=== PATIENT | female | born 1955 | race Caucasian/White ===

== ENCOUNTER 2016-08-23 16:08 | Emergency (ER) | payer MEDICAID ==
[2016-08-23] MEDS ORDERED: ASPIRIN 81 MG TABLET, CHEWABLE PO ONE (16:32)
--- NOTE | 2016-08-23 16:32 | ER Document Report ---
ED Medical Screen (RME) - General Stated Complaint: POSSIBLE LOSS OF APPITITE Time seen by provider: 16:29 Mode of Arrival: Wheelchair Information source: Patient Notes: 61-year-old female presents to ED for chest tightness with shortness of breath since morning, indigestion for a few days, decreased appetite for 4-5 days, cold with sweating for 2 days. Denies any cardiac history. Patient has a history of COPD and wears oxygen. She states she is on 2-1/2 L of oxygen and her sat is 96%. I have greeted and performed a rapid initial assessment of this patient. A comprehensive ED assessment and evaluation of the patient, analysis of test results and completion of medical decision making process will be conducted by an additional ED providers. TRAVEL OUTSIDE OF THE [place] IN LAST 30 DAYS: No - Related Data Allergies/Adverse Reactions: No Known Allergies Allergy (Verified 08/23/16 16:28) Past Medical History - Past Medical History Cardiac Medical History: Reports: Hx Hypertension Pulmonary Medical History: Reports: Hx Asthma, Hx Bronchitis, Hx COPD, Hx Pneumonia, Hx Sleep Apnea Denies: Hx Tuberculosis Renal/ Medical History: Reports: Hx Kidney Stones GI Medical History: Reports: Hx Gastroesophageal Reflux Disease Musculoskeltal Medical History: Reports Hx Arthritis, Reports Hx Fibromyalgia Psychiatric Medical History: Reports: Hx Depression Past Surgical History: Reports: Hx Abdominal Surgery - HERNIA REPAIR, Hx Appendectomy, Hx Section, Hx Herniorrhaphy - 2009, Hx Hysterectomy, Hx Tonsillectomy. Denies: Hx Pacemaker - Immunizations Hx Diphtheria, Pertussis, Tetanus Vaccination: No
[2016-08-23 17:19] LABS: ABSOLUTE BASOPHILS # (AUTO) 0.1 10^3/uL (0.0-0.2); ABSOLUTE EOSINOPHILS # (AUTO) 0.1 10^3/uL (0.0-0.6); ABSOLUTE LYMPHOCYTES (AUTO) 2.9 10^3/uL (0.5-4.7); ABSOLUTE MONOCYTES (AUTO) 1.3 10^3/uL (0.1-1.4); ABSOLUTE NEUT (AUTO) 8.6 10^3/uL (1.7-8.2); BASOPHILS % (AUTO) 0.6 % (0-2); EOSINOPHILS % (AUTO) 0.8 % (0-6); HEMATOCRIT 47.6 % (36.0-47.0); HEMOGLOBIN 15.9 g/dL (12.0-15.5); HGB HCT DIFFERENCE 0.1; LYMPHOCYTES % (AUTO) 22.4 % (13-45); MEAN CORPUSCULAR HEMOGLOBIN 26.4 pg (27.0-33.4); MEAN CORPUSCULAR HGB CONC 33.4 g/dL (32.0-36.0); MEAN CORPUSCULAR VOLUME 79 fl (80-97); RED BLOOD COUNT 6.03 10^6/uL (3.72-5.28); RED CELL DISTRIBUTION WIDTH 14.2 % (11.5-14.0); SEGMENTED NEUTROPHILS % (AUTO) 66.2 % (42-78)
[2016-08-23 17:34] LABS: ALANINE AMINOTRANSFERASE 44 U/L (9-52); ALBUMIN 4.8 g/dL (3.5-5.0); ALKALINE PHOSPHATASE 79 U/L (38-126); ANION GAP 12 (5-19); ASPARTATE AMINO TRANSFERASE 33 U/L (14-36); BILIRUBIN,TOTAL 0.9 mg/dL (0.2-1.3); BLOOD UREA NITROGEN 16 mg/dL (7-20); CALCIUM 10.7 mg/dL (8.4-10.2); CARBON DIOXIDE 31 mmol/L (22-30); CHLORIDE 95 mmol/L (98-107); CREATINE KINASE 384 U/L (30-135); CREATININE RESULT 0.72 mg/dL (0.52-1.25); GLUCOSE 111 mg/dL (75-110); MAGNESIUM 1.9 mg/dL (1.6-2.3); POTASSIUM 4.1 mmol/L (3.6-5.0); SODIUM 138.3 mmol/L (137-145); TOTAL PROTEIN 8.4 g/dL (6.3-8.2)
[2016-08-23 17:46] LABS: CREATINE KINASE MB 3.46 ng/mL (<4.55)
[2016-08-23 18:00] LABS: TROPONIN I < 0.012 ng/mL
[2016-08-23] MEDS ORDERED: NORMAL SALINE 1000 ML 1,000 ML IV ONE (20:50)
[2016-08-23] MEDS ORDERED: ONDANSETRON HCL INJ/PF 4 MG/2 ML SDV IV ONE (20:51)
--- NOTE | 2016-08-23 22:57 | ER Document Report ---
ED General - General Chief Complaint: Chest Tightness Stated Complaint: POSSIBLE LOSS OF APPITITE Mode of Arrival: Wheelchair Notes: Patient is a 61-year-old female who presents with 3 days of intermittent nausea without vomiting except for the first day of her symptoms. Also notes that she has had loss of appetite. She admits to intermittent chest tightness a little states that is not happening for the last 2 days. Multiple sick family members at home with similar illness including the patient's daughter. Patient also notes intermittent cough. She has not had a fever, diarrhea and actually has not had a bowel movement for the past 3 days which she states is normal for her. She has not seen her primary care doctor regarding today's symptoms. Nothing improves or worsens her symptoms. Denies any shortness of breath, hemoptysis. TRAVEL OUTSIDE OF THE [place] IN LAST 30 DAYS: No - Related Data Allergies/Adverse Reactions: No Known Allergies Allergy (Verified 08/23/16 16:28) Past Medical History - General Information source: Patient - Social History Smoking Status: Current Every Day Smoker Chew tobacco use (# tins/day): Yes Frequency of alcohol use: None Drug Abuse: None Lives with: Family Family History: Reviewed & Not Pertinent Patient has suicidal ideation: No Patient has homicidal ideation: No - Past Medical History Cardiac Medical History: Reports: Hx Hypertension Pulmonary Medical History: Reports: Hx Asthma, Hx Bronchitis, Hx COPD, Hx Pneumonia, Hx Sleep Apnea Denies: Hx Tuberculosis Renal/ Medical History: Reports: Hx Kidney Stones. Denies: Hx Peritoneal Dialysis GI Medical History: Reports: Hx Gastroesophageal Reflux Disease Musculoskeltal Medical History: Reports Hx Arthritis, Reports Hx Fibromyalgia Psychiatric Medical History: Reports: Hx Depression Past Surgical History: Reports: Hx Abdominal Surgery - HERNIA REPAIR, Hx Appendectomy, Hx Section, Hx Herniorrhaphy - 2009, Hx Hysterectomy, Hx Tonsillectomy. Denies: Hx Pacemaker - Immunizations Hx Diphtheria, Pertussis, Tetanus Vaccination: No Hx Pneumococcal Vaccination: 03/11/10 Review of Systems - Review of Systems Notes: Constitutional: Negative for fever. HENT: Negative for sore throat. Eyes: Negative for visual changes. Cardiovascular: Positive for chest pain. Respiratory: Negative for shortness of breath. Gastrointestinal: Negative for abdominal pain, positive for vomiting Genitourinary: Negative for dysuria. Musculoskeletal: Negative for back pain. Skin: Negative for rash. Neurological: Negative for headaches, weakness or numbness. 10 point ROS negative except as marked above and in HPI. Physical Exam - Vital signs Vitals: Temp Pulse Resp BP Pulse Ox 98.5 F 73 18 138/60 H 96 08/23/16 16:18 08/23/16 16:18 08/23/16 16:18 08/23/16 16:18 08/23/16 16:18 Interpretation: Normal Notes: PHYSICAL EXAMINATION: GENERAL: Well-appearing, well-nourished and in no acute distress. HEAD: Atraumatic, normocephalic. EYES: Pupils equal round and reactive to light, extraocular movements intact, sclera anicteric, conjunctiva are normal. ENT: nares patent, oropharynx clear without exudates. Moist mucous membranes. NECK: Normal range of motion, supple without lymphadenopathy LUNGS: Breath sounds clear to auscultation bilaterally and equal. No wheezes rales or rhonchi. HEART: Regular rate and rhythm without murmurs ABDOMEN: Soft, nontender, normoactive bowel sounds. No guarding, no rebound. No masses appreciated. EXTREMITIES: Normal range of motion, no pitting or edema. No cyanosis. NEUROLOGICAL: No focal neurological deficits. Moves all extremities spontaneously and on command. PSYCH: Normal mood, normal affect. SKIN: Warm, Dry, normal turgor, no rashes or lesions noted. Course - Re-evaluation Re-evalutation: 08/23/16 22:57 Patient presents with decreased appetite, one episode of vomiting 3 days ago but no additional vomiting since that time, as well as intermittent chest tightness. Patient is overall well-appearing on exam, vitals within normal limits on her home 2 L by nasal cannula. She has no focal abdominal tenderness on examination. She denies any chest pain today and states she has not had any chest pain for the past several days. EKG without ischemic changes and a troponin is negative. I do not suspect ACS based on patient's clinical history I do not believe serial troponin testing is indicated given the last time the patient had chest pain was approximately 2 days ago. Likewise, I do not suspect an acute pulmonary embolus given the absence of pleuritic pain, tachcardia or tachypnea. Regarding patient's nausea and one episode of vomiting as well as loss of appetite, the exact etiology of this is somewhat unclear at this time. Right upper quadrant ultrasound does not demonstrate any evidence of acute cholecystitis or symptomatic cholelithiasis. Labs do not suggest an acute hepatitis or pancreatitis. A KUB does not demonstrate any evidence of a bowel obstruction. It is possible the patient could have a viral illness given that multiple members of the family including the patient's daughter who I saw earlier for very similar symptoms. Patient has tolerated oral intake here without difficulty.At this time will discharge with return precautions and follow-up recommendations. Verbal discharge instructions given a the bedside and opportunity for questions given. Medication warnings reviewed. Patient is in agreement with this plan and has verbalized understanding of return precautions and the need for primary care follow-up in the next 24-72 hours. - Vital Signs Vital signs: Temp Pulse Resp BP Pulse Ox 98.5 F 65 20 117/54 L 92 08/23/16 16:18 08/23/16 23:56 08/23/16 23:56 08/23/16 23:56 08/23/16 23:56 - Laboratory Result Diagrams: 08/23/16 17:00 08/23/16 17:00 Laboratory results interpreted by me: 08/23/16 08/23/16 17:00 17:00 WBC 13.0 H RBC 6.03 H Hgb 15.9 H Hct 47.6 H MCV 79 L MCH 26.4 L RDW 14.2 H Absolute Neutrophils 8.6 H Chloride 95 L Carbon Dioxide 31 H Glucose 111 H Calcium 10.7 H Creatine Kinase 384 H Total Protein 8.4 H - Diagnostic Test Radiology reviewed: Reports reviewed - EKG Interpretation by Me Additional EKG results interpreted by me: 08/23/16 23:01 Normal sinus rhythm. Rate 68. No ST elevations or depressions. QTC is 464. Discharge - Discharge Clinical Impression: Loss of appetite, Nausea Condition: Good Disposition: HOME, SELF-CARE Additional Instructions: You have been seen in the Emergency Department (ED) today for nausea and loss of appetite. Your work up today has not shown a clear cause for your symptoms. You have been prescribed Zofran; please use as prescribed as needed for your nausea. Follow up with your doctor tomorrow regarding today's emergent visit and your symptoms of nausea. Return to the Emergency Department (ED) if you develop abdominal pain, bloody vomiting, bloody diarrhea, if you are unable to tolerate fluids due to vomiting , or if you develop other symptoms that concern you. Referrals: JAMES AMAYA MD [Primary Care Provider] - Follow up tomorrow
[2016-08-23] MEDS ORDERED: ONDANSETRON ODT 4 MG TAB (6 TAB/DSPK) PO PRN (23:02)
[2016-08-23 23:58] VITALS: BP 117/54
== END 2016-08-23 23:28 | disposition home or self-care (01) ==
LOC: ER 16:08
DX: R63.0 Anorexia (principal); R11.0 Nausea; R07.89 Other chest pain; R05 Cough; F17.200 Nicotine dependence, unspecified, uncomplicated; I10 Essential (primary) hypertension; J45.909 Unspecified asthma, uncomplicated; J44.9 Chronic obstructive pulmonary disease, unspecified; Z87.01 Personal history of pneumonia (recurrent); Z87.442 Personal history of urinary calculi; Z87.19 Personal history of other diseases of the digestive system; Z90.49 Acquired absence of other specified parts of digestive tract; Z90.710 Acquired absence of both cervix and uterus
CPT/HCPCS: 99284; 96361; 96374; 36415; 82553; 82550; 83735; 85025; 80053; 84484; 71020; 74000; 76705; J2405; J7030

== ENCOUNTER → 2016-10-20 | Outpatient (CLI) | payer MEDICAID | LOC: SP 11:30 | PROVIDERS: ATTEND Internal Medicine | DX: R22.42 Localized swelling, mass and lump, left lower limb (principal) | CPT/HCPCS: 93971 ==

== ENCOUNTER → 2017-02-28 | Outpatient (CLI) | payer MEDICAID ==
--- NOTE | 2017-02-28 11:36 | RADIOLOGY REPORT (SQ) ---
EXAM DESCRIPTION: CT LUNG CANCER SCREENING COMPLETED DATE/TIME: 02/28/2017 9:29 am REASON FOR STUDY: ENCOUNTER FOR SCREENING FOR MALIGNANT NEOPLASM OF RESPIRATORY (Z12.2) J44.9 CHRON IC OBSTRUCTIVE PULMONARY DISEASE, UNSPECIFIED Z12.31 ENCNTR SCREEN MAMMOGRAM FOR MALIGNANT NEOPLASM OF BETSY Has the patient had a Chest CT scan within the past year? No Was the patient offered tobacco cessation counseling? Yes Was the patient engaged in shared decision making for this test? Yes Does the patient have signs or symptoms of Lung Cancer? No Is the patient a smoker? Yes How many packs per year? 365 How many years since quitting smoking? Not applicable Patients age: 62 COMPARISON: Two-view chest 04/10/[address] 08/24/2014, 12/04/2014, 05/23/2016 TECHNIQUE: Low Dose CT scan performed of the chest without intravenous contrast for purposes of scre ening for lung cancer. Images reviewed with lung, soft tissue and bone windows. Reconstructed coron al and sagittal MPR images reviewed. All images stored on PACS. All CT scanners at this facility use dose modulation, iterative reconstruction, and/or weight based d osing when appropriate to reduce radiation dose to as low as reasonably achievable (ALARA). [facility]: Dose Right [facility]: CareDose [facility]: Dose Right [facility]: Teradose 4D [facility]: [employer] RADIATION DOSE: Up-to-date CT equipment and radiation dose reduction techniques were employed. CTDIv ol: 2.1 mGy. DLP: 76 mGy-cm. mGy. . LIMITATIONS: No technical limitations. FINDINGS: LUNG NODULES: In the right middle lobe, a 6.5 mm smooth round subpleural nodule is presen t unchanged from CT exams dating back to 08/24/2014, benign. Along the periphery of the right middle lobe, less than 4 mm smooth round subpleural noncalcified gra nulomas are present unchanged from CT 08/24/2014, benign. REMAINING LUNGS AND PLEURA: No pleural effusions or calcifications. No pneumothorax. Bandlike a telectasis in the right middle lobe and lingula, unchanged. HILAR AND MEDIASTINAL STRUCTURES: No identified masses. No abnormal nodes. HEART AND VASCULAR STRUCTURES: No aortic aneurysm. No pericardial effusion. No cardiac devices. CORONARY ARTERY CALCIFICATIONS: No significant calcifications. UPPER ABDOMEN, THYROID, BONES, OTHER SOFT TISSUES: No significant findings. IMPRESSION: BENIGN FINDINGS IN THE LUNGS. NO OTHER CLINICALLY SIGNIFICANT/POTENTIALLY CLINICALLY SIGNIFICANT FINDINGS LUNGRADS: LUNGRADS: 2 BENIGN APPEARANCE OR BEHAVIOR. NODULES WITH A VERY LOW LIKELIHOOD OF BECOMING A CLINICALLY ACTIVE CANCER DUE TO SIZE OR LACK OF GROWTH. MODIFIER: NONE. RECOMMENDATION: Continue annual screening with LDCT in 12 months. COMMENT: CRITERIA: Solid nodule(s): < 6 mm; new < 4 mm. Part solid nodule(s): < 6 mm total diameter on baseline screening. Non solid nodule(s) (GGN): < 20 mm OR ? 20 and unchanged or slowly growing. Category 3 or 4 modules unchanged for ? 3 months. TECHNICAL DOCUMENTATION: JOB ID: [id number] Quality ID # 436: Final reports with documentation of one or more dose reduction techniques (e.g., Au tomated exposure control, adjustment of the mA and/or kV according to patient size, use of iterative reconstruction technique) 2011 [employer]
--- NOTE | 2017-02-28 16:09 | WOMENS IMAGING REPORT ---
EXAM DESCRIPTION: BILAT SCREENING MAMMO W/CAD COMPLETED DATE/TIME: 02/28/2017 9:47 am REASON FOR STUDY: ROUTINE SCREENING; Z12.31 J44.9 CHRONIC OBSTRUCTIVE PULMONARY DISEASE, UNSPECIFIE D Z12.31 ENCNTR SCREEN MAMMOGRAM FOR MALIGNANT NEOPLASM OF BETSY COMPARISON: Multiple since 2008 TECHNIQUE: Standard craniocaudal and mediolateral oblique views of each breast recorded using digita l acquisition. LIMITATIONS: None. FINDINGS: No masses, calcifications or architectural distortion. No areas of suspicion. Read with the assistance of CAD. .[facility] - R2 Cenova Version 1.3 .[facility] - R2 Cenova Version 1.3 .[facility] - R2 Cen[employer] Version 2.4 .[facility] - R2 Cenova Version 2.4 .[facility] - R2 Clinical Staff Educator Version 9.2 IMPRESSION: NORMAL MAMMOGRAM. BIRADS 1. BREAST DENSITY: a. The breasts are almost entirely fatty. BIRAD: 1 NEGATIVE RECOMMENDATION: ROUTINE SCREENING Please consider bilateral screening tomosynthesis in February 2018 COMMENT: The patient has been notified of the results by letter per SA requirements. Additional no tification policies are in place for contacting patient with suspicious or incomplete findings. Quality ID #[id number]: The [employer] recommends an annual screening mammogram for women aged 40 years or over. This facility utilizes a reminder system to ensure that all patients receive reminder letters, and/or direct phone calls for appointments. This includes reminders for routine scr eening mammograms, diagnostic mammograms, or other Breast Imaging Interventions when appropriate. Th is patient will be placed in the appropriate reminder system. The [employer] (ACR) has developed recommendations for screening MRI of the breast s in certain patient populations, to be used in conjunction with mammography. Breast MRI surveillanc e may be appropriate for women with more than 20% lifetime risk of developing breast cancer as deter mined by genetic testing, significant family history of the disease, or history of mantle radiation f or Hodgkins Disease. ACR Practice Guidelines 2008. TECHNICAL DOCUMENTATION: FINDING NUMBER: (1) ASSESSMENT: (1) JOB ID: [id number] [employer]- All Rights Reserved
== END ==
LOC: RAD 08:51
PROVIDERS: ATTEND Internal Medicine
DX: Z12.31 Encounter for screening mammogram for malignant neoplasm of breast (principal); J44.9 Chronic obstructive pulmonary disease, unspecified; Z12.2 Encounter for screening for malignant neoplasm of respiratory organs
CPT/HCPCS: G0297; G0202; 77067

== ENCOUNTER → 2017-07-24 | Outpatient (CLI) | payer MEDICAID ==
--- NOTE | 2017-07-24 13:31 | RADIOLOGY REPORT (SQ) ---
EXAM DESCRIPTION: CHEST PA/LATERAL COMPLETED DATE/TIME: 07/24/2017 11:18 am REASON FOR STUDY: CHRONIC OBSTRUCTIVE PULMONARY DISEASE, UNSPECIFIED COMPARISON: 08/23/2016 NUMBER OF VIEWS: Two view. TECHNIQUE: Frontal and lateral radiographic views of the chest acquired. LIMITATIONS: None. FINDINGS: LUNGS AND PLEURA: Stable mild diffuse interstitial change. Chronic markings left lower l chioma zone. MEDIASTINUM AND HILAR STRUCTURES: No masses or contour abnormalities. HEART AND VASCULATURE: Heart normal size. No evidence for failure. BONY STRUCTURES: No acute findings. HARDWARE: None. OTHER: No other significant finding. IMPRESSION: Mild chronic diffuse interstitial change in chronic markings left base. No acute findin gs. TECHNICAL DOCUMENTATION: JOB ID: [id number] [employer]- All Rights Reserved
== END ==
LOC: OD 11:09
PROVIDERS: ATTEND Internal Medicine
DX: J44.9 Chronic obstructive pulmonary disease, unspecified (principal)
CPT/HCPCS: 71046

== ENCOUNTER 2019-05-14 18:18 | Inpatient (IN) | payer MEDICARE, MEDICAID ==
[2019-05-14] MEDS ORDERED: ONDANSETRON 4 MG TAB.RAPDIS PO ONE (19:09)
--- NOTE | 2019-05-14 19:09 | ER Document Report ---
ED Medical Screen (RME) - General Chief Complaint: Flank Pain Stated Complaint: LEFT FLANK PAIN Time Seen by Provider: 05/14/19 19:03 Primary Care Provider: JAMES AMAYA MD [Primary Care Provider] - Follow up as needed Mode of Arrival: Wheelchair Information source: Patient Notes: This 64-year-old female with history of kidney stones COPD IBS and chronic back and knee pain presents emergency department with left-sided flank pain started yesterday. Reports nausea. Reports she wears a fentanyl patch and that is not touching the pain. Denies fever. Reports decreased appetite I have greeted and performed a rapid initial assessment of this patient. A comprehensive ED assessment and evaluation of the patient, analysis of test results and completion of the medical decision making process will be conducted by additional ED providers. Dictation of this chart was performed using voice recognition software; therefore, there may be some unintended grammatical errors. TRAVEL OUTSIDE OF THE [place] IN LAST 30 DAYS: No - Related Data Allergies/Adverse Reactions: No Known Allergies Allergy (Verified 05/14/19 19:01) Home Medications: blood pressure meds. linzess. Past Medical History - Social History Chew tobacco use (# tins/day): No Frequency of alcohol use: None Drug Abuse: None - Past Medical History Cardiac Medical History: Reports: Hx Hypertension Pulmonary Medical History: Reports: Hx Asthma, Hx Bronchitis, Hx COPD, Hx Pneumonia, Hx Sleep Apnea Denies: Hx Tuberculosis Renal/ Medical History: Reports: Hx Kidney Stones. Denies: Hx Peritoneal Dialysis GI Medical History: Reports: Hx Gastroesophageal Reflux Disease Musculoskeltal Medical History: Reports Hx Arthritis, Reports Hx Fibromyalgia Psychiatric Medical History: Reports: Hx Depression Past Surgical History: Reports: Hx Abdominal Surgery - HERNIA REPAIR, Hx Appendectomy, Hx Section, Hx Herniorrhaphy - 2009, Hx Hysterectomy, Hx Tonsillectomy. Denies: Hx Pacemaker - Immunizations Hx Diphtheria, Pertussis, Tetanus Vaccination: No Physical Exam - Vital signs Vitals: Temp Pulse Resp BP Pulse Ox 98.5 F 95 20 120/67 92 05/14/19 18:45 05/14/19 18:45 05/14/19 18:45 05/14/19 18:45 05/14/19 18:45 Course - Vital Signs Vital signs: Temp Pulse Resp BP Pulse Ox 98.5 F 95 20 120/67 92 12/04/19 19:01 05/14/19 19:01 05/14/19 19:01 05/14/19 19:01 05/14/19 19:01 Doctor's Discharge - Discharge Referrals: JAMES AMAYA MD [Primary Care Provider] - Follow up as needed
[2019-05-14 19:44] LABS: HEMATOCRIT 43.8 % (36.0-47.0); HEMOGLOBIN 14.5 g/dL (12.0-15.5); MEAN CORPUSCULAR HEMOGLOBIN 25.7 pg (27.0-33.4); MEAN CORPUSCULAR HGB CONC 33.1 g/dL (32.0-36.0); MEAN CORPUSCULAR VOLUME 78 fl (80-97); PLATELET COUNT 376 10^3/uL (150-450); RED BLOOD COUNT 5.64 10^6/uL (3.72-5.28); RED CELL DISTRIBUTION WIDTH 15.7 % (11.5-14.0); WHITE BLOOD COUNT 23.5 10^3/uL (4.0-10.5)
[2019-05-14 19:53] LABS: ALBUMIN 4.2 g/dL (3.5-5.0); ALKALINE PHOSPHATASE 70 U/L (38-126); ANION GAP 9 (5-19); ASPARTATE AMINO TRANSFERASE 13 U/L (14-36); BILIRUBIN,DIRECT 0.1 mg/dL (0.0-0.4); BILIRUBIN,TOTAL 0.7 mg/dL (0.2-1.3); BLOOD UREA NITROGEN 11 mg/dL (7-20); CALCIUM 9.6 mg/dL (8.4-10.2); CARBON DIOXIDE 29 mmol/L (22-30); CHLORIDE 99 mmol/L (98-107); GLUCOSE 115 mg/dL (75-110); POTASSIUM 4.1 mmol/L (3.6-5.0); TOTAL PROTEIN 7.6 g/dL (6.3-8.2)
[2019-05-14 20:07] LABS: ABSOLUTE LYMPHOCYTES# (MANUAL) 5.9 10^3/uL (0.5-4.7); ABSOLUTE MONOCYTES # (MANUAL) 1.9 10^3/uL (0.1-1.4); BASOPHILS % (MANUAL) 0 % (0-2); EOSINOPHILS % (MANUAL) 1 % (0-6); LYMPHOCYTES % (MANUAL) 25 % (13-45); MONOCYTES % (MANUAL) 8 % (3-13); SEGMENTED NEUTROPHILS % (MAN) 66 % (42-78); TOTAL CELLS COUNTED 100
[2019-05-14 20:08] LABS: ANISOCYTOSIS SLIGHT; PLATELET COMMENT ADEQUATE
[2019-05-14 23:52] LABS: APPEARANCE,URINE SLIGHTLY-CLOUDY; BILIRUBIN,URINE NEGATIVE (NEGATIVE); COLOR,URINE AMBER; GLUCOSE, URINE NEGATIVE (NEGATIVE); KETONES,URINE NEGATIVE (NEGATIVE); LEUKOCYTE ESTERASE,URINE TRACE (NEGATIVE); NITRITE,URINE NEGATIVE (NEGATIVE); PROTEIN,URINE 30 mg/dL (NEGATIVE); URINE SPECIFIC GRAVITY 1.035
--- NOTE | 2019-05-15 00:20 | RADIOLOGY REPORT (SQ) ---
EXAM DESCRIPTION: CT ABDOMEN PELVIS WITH IV CONTRAST COMPLETED DATE/TME: 05/14/2019 19:07 CLINICAL HISTORY: 64 years, Female, LEFT flank LLQ pain COMPARISON: None. TECHNIQUE: Contrast enhanced CT of the abdomen/pelvis was performed. Coronal and sagittal reformations were created. Images were obtained of the uneventful administration of 100 mL of Omnipaque 350 intravenous contrast. Images stored on PACS. All CT scanners at this facility use dose modulation, iterative reconstruction, and/or weight based dosing when appropriate to reduce radiation dose to as low as reasonably achievable (ALARA). [facility]: Dose Right [facility]: CareDose [facility]: Dose Right [facility]: Teradose 4D [facility]: [employer] LIMITATIONS: None. FINDINGS: Limited evaluation of the lower chest reveals bands of opacity about the basilar segment of both lower lobes, indicating areas of atelectasis and/or scar. Liver, spleen, pancreas, gallbladder, and both adrenal glands appear normal. A few subcentimeter low-density lesions are noted about both kidneys which are too small to accurately characterize. Both kidneys otherwise enhance symmetrically. There is no hydronephrosis or hydroureter. The urinary bladder is partially collapsed, thus its evaluation is limited. The small and large bowel are normal in caliber without areas of focal wall thickening. No evidence of bowel obstruction. Moderate calcified/noncalcified atherosclerotic plaque is noted throughout the abdominal aorta extending into the proximal iliac vessels. In addition, the abdominal aorta appears enlarged just below the diaphragmatic hiatus measuring 2.8 x 2.6 cm in size. In addition, there is mild thickening of the aortic wall which appears new from the previous examination dated 06/17/2014. This is visualized on image 40 of series 3. Minimal inflammatory stranding is noted about the retroperitoneum at this location. No superimposed penetrating atherosclerotic ulcer is identified. No suspicious lymphadenopathy is appreciated though there are several small/nonenlarged retroperitoneal lymph nodes. Postsurgical changes of ventral hernia repair are noted about the right lower quadrant. Bone windows show no destructive osseous lesions. IMPRESSION: Mild focal thickening of the infrarenal aortic wall with associated adjacent inflammatory stranding. Aortitis is a possibility, to include infectious or inflammatory etiologies. 2.8 cm mild suprarenal aortic dilatation, not meeting criteria for aneurysm. No follow-up imaging is recommended. Reference: J Am [employer]to Radiol 2013;10:789-794. TECHNICAL DOCUMENTATION: Quality ID # 436: Final reports with documentation of one or more dose reduction techniques (e.g., Automated exposure control, adjustment of the mA and/or kV according to patient size, use of iterative reconstruction technique) copyright 2011 [employer]- All Rights Reserved
[2019-05-15] MEDS ORDERED: KETOROLAC TROMETHAMINE INJ/PF 30 MG/1 ML SDV IV ONE ×2 (00:21→05:45)
--- NOTE | 2019-05-15 00:50 | ER Document Report ---
ED GI/ - General Chief Complaint: Flank Pain Stated Complaint: LEFT FLANK PAIN Time Seen by Provider: 05/14/19 19:03 Mode of Arrival: Wheelchair Notes: Patient is a 64-year-old female that comes to the emergency department for chief complaint of mid to lower abdominal pain and flank pain worse on the left that started yesterday. She reports some nausea but denies vomiting. She denies chest pain, dizziness, fever. She states that she wears fentanyl patch for chronic lower back pain and this is not helping. She denies any other symptoms. Past medical history includes COPD, hypertension, restless legs, irritable bowel, complete as directed me, appendectomy, hernia repair. TRAVEL OUTSIDE OF THE [place] IN LAST 30 DAYS: No - Related Data Allergies/Adverse Reactions: No Known Allergies Allergy (Verified 05/14/19 19:01) Home Medications: blood pressure meds. linzess. Past Medical History - General Information source: Patient - Social History Smoking Status: Current Every Day Smoker Chew tobacco use (# tins/day): No Frequency of alcohol use: None Drug Abuse: None Lives with: Family Family History: Reviewed & Not Pertinent Patient has suicidal ideation: No Patient has homicidal ideation: No - Past Medical History Cardiac Medical History: Reports: Hx Hypertension Pulmonary Medical History: Reports: Hx Asthma, Hx Bronchitis, Hx COPD, Hx Pneumonia, Hx Sleep Apnea Denies: Hx Tuberculosis Renal/ Medical History: Reports: Hx Kidney Stones. Denies: Hx Peritoneal Dialysis GI Medical History: Reports: Hx Gastroesophageal Reflux Disease Musculoskeletal Medical History: Reports Hx Arthritis, Reports Hx Fibromyalgia Psychiatric Medical History: Reports: Hx Depression Past Surgical History: Reports: Hx Abdominal Surgery - HERNIA REPAIR, Hx Appendectomy, Hx Section, Hx Herniorrhaphy - 2008, Hx Hysterectomy, Hx Tonsillectomy. Denies: Hx Pacemaker - Immunizations Hx Diphtheria, Pertussis, Tetanus Vaccination: No Hx Pneumococcal Vaccination: 03/11/10 Review of Systems - Review of Systems Constitutional: No symptoms reported EENT: No symptoms reported Cardiovascular: No symptoms reported Respiratory: No symptoms reported Gastrointestinal: See HPI Genitourinary: See HPI Female Genitourinary: No symptoms reported Musculoskeletal: No symptoms reported Skin: No symptoms reported Hematologic/Lymphatic: No symptoms reported Neurological/Psychological: No symptoms reported Physical Exam - Vital signs Vitals: Temp Pulse Resp BP Pulse Ox 98.5 F 95 20 120/67 92 12/04/19 18:45 05/14/19 18:45 05/14/19 18:45 05/14/19 18:45 05/14/19 18:45 - Notes Notes: GENERAL: Alert, interacts well. No acute distress. HEAD: Normocephalic, atraumatic. EYES: Pupils equal, round, and reactive to light. Extraocular movements intact. ENT: Oral mucosa moist, tongue midline. Oropharynx unremarkable. Airway patent. NECK: Full range of motion. Supple. Trachea midline. LUNGS: Clear to auscultation bilaterally, no wheezes, rales, or rhonchi. No respiratory distress. HEART: Regular rate and rhythm. No murmur ABDOMEN: Tender in the mid abdomen, worse on the left and also slightly in the left lower abdomen. No guarding or rigidity, no peritoneal signs, normal bowel sounds. GENITOURINARY: Deferred EXTREMITIES: Moves all 4 extremities spontaneously. No edema, normal radial and dorsalis pedis pulses bilaterally. No cyanosis. BACK: no cervical, thoracic, lumbar midline tenderness. No saddle anesthesia, normal distal neurovascular exam. Moves all extremities in full range of motion. NEUROLOGICAL: Alert and oriented x3. Normal speech. Cranial nerves II through XII grossly intact. PSYCH: Normal affect, normal mood. SKIN: Warm, dry, normal turgor. No rashes or lesions noted. Course - Re-evaluation Re-evalutation: Patient does have generalized tenderness of the abdomen, worse on the left, this is in the mid abdomen. However I do not appreciate any guarding, she is talkative and well-appearing, her vital signs are unremarkable. CBC shows leukocytosis at approximately 24,000. No bandemia. Chemistry nonspecific. CT of the abdomen and pelvis with IV contrast performed and shows aortitis of possible infectious or inflammatory cause. I discussed with Dr. Betancourt. Lactic acid was added and not elevated. She recommends I discussed with hospitalist and also with vascular specialty. I spoke with Dr. Otoole, patient's provider and hospitalist, he recommends broad-spectrum antibiotics with Zosyn and admission to the IMCU. He accepts patient for admission. I did also call and speak with Dr. Breanna Gandhi, he does not have additional rec ommendations at this time but he does state that he will see the patient in the morning and he asks that a consult be placed, I did place this. I discussed this at length with patient. Patient states understanding and agreement with plan. - Vital Signs Vital signs: Temp Pulse Resp BP Pulse Ox 98.7 F 83 16 104/87 H 94 05/15/19 06:00 05/15/19 02:19 05/15/19 07:01 05/15/19 07:01 05/15/19 07:01 - Laboratory Result Diagrams: 05/14/19 19:27 05/14/19 19:27 Laboratory results interpreted by me: 05/14/19 05/14/19 05/14/19 19:27 19:27 23:40 WBC 23.5 H RBC 5.64 H MCV 78 L MCH 25.7 L RDW 15.7 H Abs Neuts (Manual) 15.5 H Abs Lymphs (Manual) 5.9 H Abs Monocytes (Manual) 1.9 H Glucose 115 H Lactic Acid (Sepsis) AST 13 L Urine Protein 30 H Urine Urobilinogen 2.0 H Ur Leukocyte Esterase TRACE H 05/15/19 01:00 WBC RBC MCV MCH RDW Abs Neuts (Manual) Abs Lymphs (Manual) Abs Monocytes (Manual) Glucose Lactic Acid (Sepsis) 0.5 L AST Urine Protein Urine Urobilinogen Ur Leukocyte Esterase Discharge - Discharge Clinical Impression: Flank pain, Aortitis Abdominal pain Qualifiers: Abdominal location: generalized Qualified Code(s): R10.84 - Generalized abdominal pain Condition: Stable Disposition: ADMITTED INPATIENT Admitting Provider: [facility] Admitted: [facility]
[2019-05-15] MEDS ORDERED: NORMAL SALINE 1000 ML 1,000 ML IV ONE (00:51)
[2019-05-15] MEDS ORDERED: PIPERACILLIN/TAZOBACTAM 3.375 GM VIAL IV ONE (00:54)
[2019-05-15] MEDS ORDERED: NORMAL SALINE 500 ML IV ONE (05:45)
[2019-05-15] MEDS ORDERED: NORMAL SALINE 1000 ML 1,000 ML IV PRN (06:48)
[2019-05-15 09:09] LABS: INTERNATIONAL RATION (INR) 0.96; PROTHROMBIN TIME 12.8 SEC (11.4-15.4)
[2019-05-15 09:10] LABS: PARTIAL THROMBOPLASTIN TIME 31.1 SEC (23.5-35.8)
[2019-05-15 09:18] LABS: AMYLASE 41 U/L (30-110); ANION GAP 10 (5-19); BLOOD UREA NITROGEN 15 mg/dL (7-20); C-REACTIVE PROTEIN 82.3 mg/L (<10.0); CALCIUM 8.9 mg/dL (8.4-10.2); CARBON DIOXIDE 26 mmol/L (22-30); CHLORIDE 103 mmol/L (98-107); GLUCOSE 106 mg/dL (75-110); PHOSPHORUS 4.7 mg/dL (2.5-4.5); POTASSIUM 3.8 mmol/L (3.6-5.0)
[2019-05-15 09:27] LABS: CREATINE KINASE MB 0.77 ng/mL (<4.55)
[2019-05-15 09:32] LABS: FREE T4 (FREE THYROXINE) 1.4 ng/dL (0.78-2.19)
[2019-05-15 09:35] LABS: TROPONIN I < 0.012 ng/mL
[2019-05-15 09:46] LABS: THYROID STIMULATING HORMONE 2.83 uIU/mL (0.47-4.68)
[2019-05-15] MEDS: PIPERACILLIN SODIUM/TAZOBACTAM 3.375 GM in NORMAL SALINE 100 ML IV SCH ×4 (10:11→23:23)
[2019-05-15] MEDS ORDERED: ENOXAPARIN SODIUM INJ 40 MG/0.4 ML DISP.SYRIN SUBCUT SCH (11:00)
[2019-05-15] MEDS: ENOXAPARIN SODIUM INJ 40 MG/0.4 ML DISP.SYRIN SUBCUT SCH (11:07)
--- NOTE | 2019-05-15 12:04 | RADIOLOGY REPORT (SQ) ---
EXAM DESCRIPTION: MRA ABDOMEN WITHOUT COMPLETED DATE/TIME: 05/15/2019 11:05 am REASON FOR STUDY: ? large vessel vasculitis ? stenosis COMPARISON: CT abdomen pelvis 05/14/2019, 06/17/2014 CT chest 05/23/2016, 02/28/2017 TECHNIQUE: Coronal and Axial imaging with T1 and T2 weighting through the abdomen. 3D [id number] t noncontrast acquisition of the abdominal aorta to include the visceral artery origins. 3-D MIPs pe rformed at the work station. CONTRAST TYPE AND DOSE: Not required, 3D [id number] non contrasted images RENAL FUNCTION: Not indicated. LIMITATIONS: None. FINDINGS: AORTA: The distal thoracic aorta demonstrates atherosclerotic irregularity with intimal t hickening and fatty plaque, and is 3 cm in greatest diameter. At the level of the SMA origin, ulcerated plaque with small saccular aneurysm is present. Aorta at i ts widest is 3 cm in diameter in this region, saccular outpouching measures about 12 mm in diameter. This finding is new compared to 2014 CT, and visible on CT scan 05/24/2019 coronal image 47/83. There is luminal irregularity and aortic wall thickening at and distal to the level of the renal niurka rebecca extending down to the iliac bifurcation. Wall of the aorta measures 6 mm in thickness at the le lesley of the renal arteries, 5 mm in thickness at the distal abdominal aorta just above the iliac bifur cation. Surrounding inflammatory change in the retroperitoneal fat is present with a halo of increas ed signal around the infrarenal abdominal aorta to the iliac bifurcation best shown on axial STIR thompson ges. This correlates with subtle inflammatory stranding in the retroperitoneum on CT exam 05/14/2019. No infrarenal abdominal aortic aneurysm. Iliac arteries are incompletely included in the field of view MESENTERIC VESSELS:Celiac artery and SMA are patent on the CT exam from 05/14/2019 without ostial sten osis. On today's MRI, the celiac artery is partly cropped from the field of view. SMA origin is wid orlin patent. RENAL ARTERIES:On prior CT exam, the renal arteries are patent. Today's MRI demonstrates mild irregu larity at the origin of the right renal artery with less than 50% diameter stenosis. On today's MRA exam, there is moderate atherosclerotic irregularity of the proximal left renal artery with less than 50% diameter stenosis. ABDOMINAL ORGANS: Limited view, no significant finding. BONY STRUCTURES: No significant finding as visualized. OTHER: No other significant finding. IMPRESSION: Abnormal abdominal aorta wall thickening from the renal arteries through the iliac bifur cation, with subtle inflammatory stranding in the retroperitoneum. Findings are worrisome for aortit is and correlate with CT exam 05/14/2019. Irregularity of the lumen, upper abdominal aorta at the level of the SMA origin, with small saccular luminal outpouching of the dorsal wall measuring about 12 mm in diameter. Overall abdominal aortic d iameter 3 cm at this level TECHNICAL DOCUMENTATION: JOB ID: [id number] [employer]- All Rights Reserved Reading location - IP/workstation name: [email or web address]
[2019-05-15 13:45] LABS: ABSOLUTE BASOPHILS # (AUTO) 0.1 10^3/uL (0.0-0.2); ABSOLUTE EOSINOPHILS # (AUTO) 0.5 10^3/uL (0.0-0.6); ABSOLUTE LYMPHOCYTES (AUTO) 4.8 10^3/uL (0.5-4.7); ABSOLUTE MONOCYTES (AUTO) 2.1 10^3/uL (0.1-1.4); ABSOLUTE NEUT (AUTO) 10.4 10^3/uL (1.7-8.2); BASOPHILS % (AUTO) 0.7 % (0-2); EOSINOPHILS % (AUTO) 2.7 % (0-6); HEMOGLOBIN 12.9 g/dL (12.0-15.5); LYMPHOCYTES % (AUTO) 26.7 % (13-45); MEAN CORPUSCULAR HEMOGLOBIN 25.5 pg (27.0-33.4); MEAN CORPUSCULAR HGB CONC 32.4 g/dL (32.0-36.0); MEAN CORPUSCULAR VOLUME 79 fl (80-97); MONOCYTES % (AUTO) 11.9 % (3-13); PLATELET COUNT 350 10^3/uL (150-450); RED BLOOD COUNT 5.08 10^6/uL (3.72-5.28); RED CELL DISTRIBUTION WIDTH 15.6 % (11.5-14.0); TOTAL CELLS COUNTED % (AUTO) 100 %; WHITE BLOOD COUNT 17.9 10^3/uL (4.0-10.5)
[2019-05-15] MEDS: MORPHINE SULFATE 10 MG/ML INJ IV PRN ×3 (14:36→23:29)
[2019-05-15 15:34] LABS: CREATINE KINASE MB 0.67 ng/mL (<4.55)
[2019-05-15 15:39] LABS: TROPONIN I < 0.012 ng/mL
--- NOTE | 2019-05-15 19:28 | PDOC H&P ---
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 She was evaluated in the ER, CAT scan of the abdomen and pelvis with IV contrast was done. It demonstrated moderate calcified/noncalcified atherosclerotic plaque throughout the abdominal aorta extending into the proximal iliac vessels, in addition the abdominal aorta appears enlarged just below the diaphragmatic hiatus measuring 2.8 x 2.8 cm in size. In addition there is mild thickening of the aortic wall which appears new from the previous examination dated 06/17/2014. Minimal inflammatory stranding is noted about the retroperitoneum, subsequent MRA of the abdomen demonstrated luminal irregularity and aortic wall thickening at and distal to the level of the renal arteries extending down to the iliac bifurcation. There is surrounding inflammatory change in the retroperitoneal fat the findings suggest aortitis. There is associated leukocytosis, WBC 23,000 with a left shift, CRP more than 80 suggesting slight inflammatory process.The etiology of the inflammation is not clear, the differential diagnosis would include Takayasu disease, infectious aortitis though unlikely. Past Medical History Cardiac Medical History: Reports: Hypertension Pulmonary Medical History: Reports: Asthma, Bronchitis, Chronic Obstructive Pulmonary Disease (COPD), Pneumonia, Sleep Apnea GI Medical History: Reports: Gastroesophageal Reflux Disease Musculoskeltal Medical History: Reports: Arthritis, Fibromyalgia Psychiatric Medical History: Reports: Depression Past Surgical History Past Surgical History: Reports: Appendectomy, Section, Herniorrhaphy - 2009, Hysterectomy, Tonsillectomy Social History Lives with: Family Smoking Status: Current Every Day Smoker Electronic Cigarette use?: No Frequency of Alcohol Use: None Hx Recreational Drug Use: No Drugs: None Hx Prescription Drug Abuse: No Family History Family History: Reviewed & Not Pertinent Parental Family History Reviewed: Yes Children Family History Reviewed: Yes Sibling(s) Family History Reviewed.: Yes Medication/Allergy Home Medications: Amlodipine Besylate [Norvasc 10 mg Tablet] 10 mg PO DAILY 05/15/19 Atorvastatin Calcium [Lipitor 40 mg Tablet] 40 mg PO QHS 05/15/19 Bupropion HCl [Wellbutrin Sr 150 mg Tablet] 150 mg PO Q12 05/15/19 Dextroamphetamine/Amphetamine [Adderall 20 mg Tablet] 20 mg PO Q8 05/15/19 Fentanyl [Duragesic 50 Mcg/Hr Transdermal Patch] 1 each TD Q3D 05/15/19 Fluoxetine HCl [Prozac] 80 mg PO QAM 05/15/19 Ibuprofen [Motrin 600 mg Tablet] 600 mg PO Q12HP PRN 05/15/19 Linaclotide [Linzess] 290 mcg PO DAILY 05/15/19 Lisinopril/Hydrochlorothiazide [Lisinopril-Hctz 20-12.5 mg Tab] 1 each PO Q12 05/15/19 Metoprolol Tartrate [Lopressor 50 mg Tablet] 50 mg PO Q12 05/15/19 Omeprazole 40 mg PO DAILY 05/15/19 Pramipexole Di-HCl [Mirapex 0.5 Mg Tablet] 0.5 mg PO Q8 05/15/19 Allergies/Adverse Reactions: No Known Allergies Allergy (Verified 05/14/19 19:01) Review of Systems Constitutional: PRESENT: chills Eyes: ABSENT: visual disturbances Ears: ABSENT: hearing changes Cardiovascular: ABSENT: chest pain, dyspnea on exertion, edema, orthropnea, palpitations Respiratory: ABSENT: cough, hemoptysis Gastrointestinal: PRESENT: abdominal pain Genitourinary: ABSENT: dysuria, hematuria Musculoskeletal: ABSENT: joint swelling Integumentary: ABSENT: rash, wounds Neurological: ABSENT: abnormal gait, abnormal speech, confusion, dizziness, focal weakness, syncope Psychiatric: ABSENT: anxiety, depression, homidical ideation, suicidal ideation Endocrine: ABSENT: cold intolerance, heat intolerance, menstrual abnormalities, polydipsia, polyuria Hematologic/Lymphatic: ABSENT: easy bleeding, easy bruising, lymphadenopathy Physical Exam Vital Signs: Temp Pulse Resp BP Pulse Ox 98.1 F 93 22 H 128/50 H 99 05/15/19 18:35 05/15/19 18:35 05/15/19 18:35 05/15/19 18:35 05/15/19 18:35 Intake & Output 05/14/19 05/15/19 05/16/19 06:59 06:59 06:59 Intake Total 1500 580 Balance 1500 580 Weight 90.7 kg General appearance: PRESENT: no acute distress Head exam: PRESENT: atraumatic, normocephalic Eye exam: PRESENT: PERRLA Ear exam: PRESENT: normal external ear exam Mouth exam: PRESENT: moist, tongue midline Neck exam: PRESENT: full ROM Respiratory exam: PRESENT: clear to auscultation cedric Cardiovascular exam: PRESENT: RRR, +S1, +S2 Pulses: PRESENT: normal dorsalis pedis pul, +2 pedal pulses bilateral Vascular exam: PRESENT: normal capillary refill GI/Abdominal exam: PRESENT: normal bowel sounds, soft, tenderness Rectal exam: PRESENT: deferred Neurological exam: PRESENT: alert, CN II-XII grossly intact Psychiatric exam: PRESENT: appropriate affect, normal mood Skin exam: PRESENT: dry, intact, warm Results Laboratory Results: 05/15/19 08:20 05/15/19 08:20 05/14/19 05/14/19 05/14/19 19:27 19:27 23:40 WBC 23.5 H RBC 5.64 H Hgb 14.5 Hct 43.8 MCV 78 L MCH 25.7 L MCHC 33.1 RDW 15.7 H Plt Count 376 Seg Neutrophils % Not Reportable Sodium 137.0 Potassium 4.1 Chloride 99 Carbon Dioxide 29 Anion Gap 9 BUN 11 Creatinine 0.80 Est GFR ( Amer) > 60 Glucose 115 H Calcium 9.6 Phosphorus Magnesium Total Bilirubin 0.7 AST 13 L Alkaline Phosphatase 70 C-Reactive Protein Total Protein 7.6 Albumin 4.2 Amylase Lipase TSH Free T4 Urine Color ZAYNAB Urine Appearance SLIGHTLY-CLOUDY Urine pH 5.0 Ur Specific [place] 1.035 Urine Protein 30 H Urine Glucose (UA) NEGATIVE Urine Ketones NEGATIVE Urine Blood NEGATIVE Urine Nitrite NEGATIVE Ur Leukocyte Esterase TRACE H Urine WBC (Auto) 7 Urine RBC (Auto) 2 05/15/19 05/15/19 05/15/19 08:20 08:20 08:20 WBC 17.9 H RBC 5.08 Hgb 12.9 Hct 40.0 MCV 79 L MCH 25.5 L MCHC 32.4 RDW 15.6 H Plt Count 350 Seg Neutrophils % 58.0 Sodium 138.7 Potassium 3.8 Chloride 103 Carbon Dioxide 26 Anion Gap 10 BUN 15 Creatinine 0.96 Est GFR ( Amer) > 60 Glucose 106 Calcium 8.9 Phosphorus 4.7 H Magnesium 2.2 Total Bilirubin AST Alkaline Phosphatase C-Reactive Protein 82.3 H Total Protein Albumin Amylase 41 Lipase 80.5 TSH 2.83 Free T4 1.40 Urine Color Urine Appearance Urine pH Ur Specific [place] Urine Protein Urine Glucose (UA) Urine Ketones Urine Blood Urine Nitrite Ur Leukocyte Esterase Urine WBC (Auto) Urine RBC (Auto) 05/15/19 05/15/19 05/15/19 08:20 08:20 14:35 Creatine Kinase 55 50 CK-MB (CK-2) 0.77 Troponin I < 0.012 05/15/19 14:35 Creatine Kinase CK-MB (CK-2) 0.67 Troponin I < 0.012 Impressions: Abdomen/Pelvis CT 05/14/19 19:07 IMPRESSION: Mild focal thickening of the infrarenal aortic wall with associated adjacent inflammatory stranding. Aortitis is a possibility, to include infectious or inflammatory etiologies. 2.8 cm mild suprarenal aortic dilatation, not meeting criteria for aneurysm. No follow-up imaging is recommended. Reference: J Am Umberto Radiol 2013;10:789-794. TECHNICAL DOCUMENTATION: Quality ID # 436: Final reports with documentation of one or more dose reduction techniques (e.g., Automated exposure control, adjustment of the mA and/or kV according to patient size, use of iterative reconstruction technique) copyright 2011 [employer]- All Rights Reserved Abdomen MRI with MRA 05/15/19 00:00 IMPRESSION: Abnormal abdominal aorta wall thickening from the renal arteries through the iliac bifurcation, with subtle inflammatory stranding in the retroperitoneum. Findings are worrisome for aortitis and correlate with CT exam 05/14/2019. Irregularity of the lumen, upper abdominal aorta at the level of the SMA origin, with small saccular luminal outpouching of the dorsal wall measuring about 12 mm in diameter. Overall abdominal aortic diameter 3 cm at this level Assessment & Plan - Diagnosis (1) Aortitis Is this a current diagnosis for this admission?: Yes Plan: The differential diagnosis include Takayasu disease, infectious inflammatory aortitis though unlikely, patient empirically started on antibiotic, Zosyn. I felt patient needed to be transferred to tertiary care center because of the degree of the inflammatory process affecting the aorta. I spoke to [facility], the hospitalist, he was kind enough to accept patient in transfer
--- NOTE | 2019-05-15 19:31 | PDOC TRANSFER SUMMARY ---
General Admission Date/PCP: 05/15/19 01:06 JAMES AMAYA MD Admission Date: 05/15/19 Transfer Date: 05/15/19 Accepting Facility: [facility] Resuscitation Status: Full Code - Transfer Diagnosis (1) Aortitis Is this a current diagnosis for this admission?: Yes - Transfer Medications Home Medications: Amlodipine Besylate [Norvasc 10 mg Tablet] 10 mg PO DAILY 05/15/19 Atorvastatin Calcium [Lipitor 40 mg Tablet] 40 mg PO QHS 05/15/19 Bupropion HCl [Wellbutrin Sr 150 mg Tablet] 150 mg PO Q12 05/15/19 Dextroamphetamine/Amphetamine [Adderall 20 mg Tablet] 20 mg PO Q8 05/15/19 Fentanyl [Duragesic 50 Mcg/Hr Transdermal Patch] 1 each TD Q3D 05/15/19 Fluoxetine HCl [Prozac] 80 mg PO QAM 05/15/19 Ibuprofen [Motrin 600 mg Tablet] 600 mg PO Q12HP PRN 05/15/19 Linaclotide [Linzess] 290 mcg PO DAILY 05/15/19 Lisinopril/Hydrochlorothiazide [Lisinopril-Hctz 20-12.5 mg Tab] 1 each PO Q12 05/15/19 Metoprolol Tartrate [Lopressor 50 mg Tablet] 50 mg PO Q12 05/15/19 Omeprazole 40 mg PO DAILY 05/15/19 Pramipexole Di-HCl [Mirapex 0.5 Mg Tablet] 0.5 mg PO Q8 05/15/19 Transfer Medications: Current Medications Enoxaparin Sodium (Lovenox Inj 40 Mg/0.4 Ml Disp.Syrin) 40 mg SUBCUT DAILY [facility] Stop: 06/14/19 10:59 Last Admin: 05/15/19 11:24 Dose: 40 mg Documented by: Sodium Chloride (Nacl 0.9% 1000 Ml Iv Soln) 1,000 mls @ 100 mls/hr IV CONTINUOUS PRN PRN Reason: THIS MED IS NOT "PRN" Stop: 06/14/19 06:47 Piperacillin Sod/Tazobactam (Sod 3.375 gm/ Sodium Chloride) 100 mls @ 200 mls/hr IV Q6 [facility]EENA[facility] Stop: 05/22/19 07:29 Last Admin: 05/15/19 17:42 Dose: 200 mls/hr, 200 mls/hr Documented by: Morphine Sulfate (Morphine 10 Mg/Ml Inj) 5 mg IV Q5MP PRN PRN Reason: FOR PAIN Last Admin: 05/15/19 14:36 Dose: 5 mg Documented by: - Allergies Allergies/Adverse Reactions: No Known Allergies Allergy (Verified 05/14/19 19:01) Hospital Course Hospital Course: Patient was admitted for the management of aortitis, she was admitted today to the hospital, see H&P for details, she is been [facility] for higher level of care Physical Exam Vital Signs: Temp Pulse Resp BP Pulse Ox 98.1 F 93 22 H 128/50 H 99 05/15/19 18:35 05/15/19 18:35 05/15/19 18:35 05/15/19 18:35 05/15/19 18:35 Intake & Output 05/14/19 05/15/19 05/16/19 06:59 06:59 06:59 Intake Total 1500 580 Balance 1500 580 Weight 90.7 kg General appearance: PRESENT: no acute distress Eye exam: PRESENT: PERRLA Respiratory exam: PRESENT: clear to auscultation cedric Cardiovascular exam: PRESENT: +S1, +S2 GI/Abdominal exam: PRESENT: soft Neurological exam: PRESENT: alert Results Laboratory Results: 05/15/19 08:20 05/15/19 08:20 05/14/19 05/14/19 05/14/19 19:27 19:27 23:40 WBC 23.5 H RBC 5.64 H Hgb 14.5 Hct 43.8 MCV 78 L MCH 25.7 L MCHC 33.1 RDW 15.7 H Plt Count 376 Seg Neutrophils % Not Reportable Sodium 137.0 Potassium 4.1 Chloride 99 Carbon Dioxide 29 Anion Gap 9 BUN 11 Creatinine 0.80 Est GFR ( Amer) > 60 Glucose 115 H Calcium 9.6 Phosphorus Magnesium Total Bilirubin 0.7 AST 13 L Alkaline Phosphatase 70 C-Reactive Protein Total Protein 7.6 Albumin 4.2 Amylase Lipase TSH Free T4 Urine Color ZAYNAB Urine Appearance SLIGHTLY-CLOUDY Urine pH 5.0 Ur Specific [place] 1.035 Urine Protein 30 H Urine Glucose (UA) NEGATIVE Urine Ketones NEGATIVE Urine Blood NEGATIVE Urine Nitrite NEGATIVE Ur Leukocyte Esterase TRACE H Urine WBC (Auto) 7 Urine RBC (Auto) 2 05/15/19 05/15/1905/15/19 08:20 08:20 08:20 WBC 17.9 H RBC 5.08 Hgb 12.9 Hct 40.0 MCV 79 L MCH 25.5 L MCHC 32.4 RDW 15.6 H Plt Count 350 Seg Neutrophils % 58.0 Sodium 138.7 Potassium 3.8 Chloride 103 Carbon Dioxide 26 Anion Gap 10 BUN 15 Creatinine 0.96 Est GFR ( Amer) > 60 Glucose 106 Calcium 8.9 Phosphorus 4.7 H Magnesium 2.2 Total Bilirubin AST Alkaline Phosphatase C-Reactive Protein 82.3 H Total Protein Albumin Amylase 41 Lipase 80.5 TSH 2.83 Free T4 1.40 Urine Color Urine Appearance Urine pH Ur Specific [place] Urine Protein Urine Glucose (UA) Urine Ketones Urine Blood Urine Nitrite Ur Leukocyte Esterase Urine WBC (Auto) Urine RBC (Auto) 05/15/19 05/15/19 05/15/19 08:20 08:20 14:35 Creatine Kinase 55 50 CK-MB (CK-2) 0.77 Troponin I < 0.012 05/15/19 14:35 Creatine Kinase CK-MB (CK-2) 0.67 Troponin I < 0.012 Impressions: Abdomen/Pelvis CT 05/14/19 19:07 IMPRESSION: Mild focal thickening of the infrarenal aortic wall with associated adjacent inflammatory stranding. Aortitis is a possibility, to include infectious or inflammatory etiologies. 2.8 cm mild suprarenal aortic dilatation, not meeting criteria for aneurysm. No follow-up imaging is recommended. Reference: J Am Umberto Radiol 2013;10:789-794. TECHNICAL DOCUMENTATION: Quality ID # 436: Final reports with documentation of one or more dose reduction techniques (e.g., Automated exposure control, adjustment of the mA and/or kV according to patient size, use of iterative reconstruction technique) copyright 2011 [employer]- All Rights Reserved Abdomen MRI with MRA 05/15/19 00:00 IMPRESSION: Abnormal abdominal aorta wall thickening from the renal arteries through the iliac bifurcation, with subtle inflammatory stranding in the retroperitoneum. Findings are worrisome for aortitis and correlate with CT exam 05/14/2019. Irregularity of the lumen, upper abdominal aorta at the level of the SMA origin, with small saccular luminal outpouching of the dorsal wall measuring about 12 mm in diameter. Overall abdominal aortic diameter 3 cm at this level
[2019-05-15 20:39] LABS: CREATINE KINASE MB 0.89 ng/mL (<4.55); TROPONIN I < 0.012 ng/mL
[2019-05-15] MEDS ORDERED: AMLODIPINE BESYLATE 10 MG TABLET PO SCH (21:00)
[2019-05-15] MEDS ORDERED: (PENDING PHARMACY ID) (Bupropion Hcl [Wellbutrin Sr 150 Mg Tablet] 150 MG) PO SCH (22:00)
[2019-05-15] MEDS ORDERED: HYDROCHLOROTHIAZIDE 12.5 MG TABLET PO SCH (22:00)
[2019-05-15] MEDS ORDERED: ATORVASTATIN CALCIUM 40 MG TABLET PO SCH (22:00)
[2019-05-15] MEDS ORDERED: (PENDING PHARMACY ID) (Lisinopril/Hydrochlorothiazide [Lisinopril-Hctz 20-12.5 Mg Tab] 1 E PO SCH (22:00)
[2019-05-15] MEDS ORDERED: PRAMIPEXOLE DI-HCL 0.5 MG TABLET PO SCH (22:00)
[2019-05-15] MEDS ORDERED: LISINOPRIL 10 MG TABLET PO SCH (22:00)
[2019-05-15] MEDS ORDERED: (PENDING PHARMACY ID) (Dextroamphetamine/Amphetamine [Adderall 20 Mg Tablet] 20 MG) PO SCH (22:00)
[2019-05-15] MEDS ORDERED: FENTANYL 50 MCG/HR PATCH.TD72 TD SCH (22:00)
[2019-05-15] MEDS ORDERED: METOPROLOL TARTRATE 50 MG TABLET PO SCH (22:00)
[2019-05-15] MEDS ORDERED: BUPROPION HCL 100 MG TABLET PO SCH (22:00)
[2019-05-15 23:18] VITALS: BP 141/71
[2019-05-16] MEDS ORDERED: FLUOXETINE HCL 20 MG CAPSULE PO SCH (08:00)
[2019-05-16] MEDS ORDERED: PANTOPRAZOLE SODIUM 40 MG TABLET.DR PO SCH (08:00)
[2019-05-16] MEDS ORDERED: FENTANYL 50 MCG/HR PATCH.TD72 TD SCH (10:00)
== END 2019-05-16 01:52 | disposition short-term general hospital (02) | DRG 547 ==
LOC: ER 18:18 → EH 05-15 01:06 → 3S 05-15 18:05
PROVIDERS: ADMIT Internal Medicine; ATTEND Internal Medicine
DX: M31.4 Aortic arch syndrome [Takayasu] (principal); D72.823 Leukemoid reaction; J44.9 Chronic obstructive pulmonary disease, unspecified; I10 Essential (primary) hypertension; K21.9 Gastro-esophageal reflux disease without esophagitis; F32.9 Major depressive disorder, single episode, unspecified; F17.210 Nicotine dependence, cigarettes, uncomplicated; G25.81 Restless legs syndrome; G89.29 Other chronic pain; M54.9 Dorsalgia, unspecified; M25.569 Pain in unspecified knee; Z79.899 Other long term (current) drug therapy; Z86.73 Personal history of transient ischemic attack (TIA), and cerebral infarction without residual deficits
CPT/HCPCS: 36415; 74177; 80048; 80053; 81001; 82150; 82550; 82553; 83605; 83690; 83735; 84100; 84439; 84443; 84484; 85025; 85610; 85652; 85730; 86140; 87040; 96374; 96375; 99285; C8901; J1650; J1885; J2270; J2543; J3490; J7030; J7040; J7050; S0119

== ENCOUNTER → 2019-09-11 | Outpatient (CLI) | payer MEDICARE, MEDICAID ==
--- NOTE | 2019-09-11 16:10 | RADIOLOGY REPORT (SQ) ---
EXAM DESCRIPTION: MRI HEAD WITHOUT IMAGES COMPLETED DATE/TIME: 09/11/2019 1:51 pm REASON FOR STUDY: I63.9 CEREBRAL INFARCTION, UNSPECIFIED I63.9 CEREBRAL INFARCTION, UNSPECIFIED COMPARISON: None. TECHNIQUE: Multiplanar imaging includes non-contrasted T1, T2, FLAIR, and diffusion with ADC map seq uences. Images stored on PACS. LIMITATIONS: None. FINDINGS: ANATOMY: No anomalies. Normal vascular flow voids. Pituitary fossa normal. CSF SPACES: Normal in size and contour. No hemorrhage. CEREBRUM: Sulci and gyri normal in size and contour. Normal white matter signal on FLAIR imaging. No evidence of hemorrhage, mass, or extraaxial fluid collection. POSTERIOR FOSSA: No signal alteration. No hemorrhage. No edema, masses or mass effect. Internal flory tory canals, cerebello-pontine angles, mastoids normal. DIFFUSION IMAGING: Negative for acute or sub-acute infarction. ORBITS: No masses. Globes post cataract surgery. PARANASAL SINUSES: No fluid levels. Mucosa normal. OTHER: No other significant finding. IMPRESSION: NORMAL MRI OF THE BRAIN WITHOUT INTRAVENOUS GADOLINIUM CONTRAST. EVIDENCE OF ACUTE STROKE: NO. TECHNICAL DOCUMENTATION: JOB ID: [id number] 2010 [employer]- All Rights Reserved Reading location - IP/workstation name: [email or web address]
== END ==
LOC: RAD 13:03
PROVIDERS: ATTEND Internal Medicine
DX: I63.9 Cerebral infarction, unspecified (principal)
CPT/HCPCS: 70551

== ENCOUNTER → 2020-04-27 | Outpatient (CLI) | payer MEDICARE, MEDICAID ==
--- NOTE | 2020-04-27 18:04 | RADIOLOGY REPORT (SQ) ---
EXAM DESCRIPTION: VENOUS UNILATERAL LOWER IMAGES COMPLETED DATE/TIME: 04/27/2020 2:02 pm REASON FOR STUDY: LLE SWELLING R22.42 LOCALIZED SWELLING, MASS AND LUMP, LEFT LOWER LIMB COMPARISON: 10/20/2016. TECHNIQUE: Dynamic and static medina scale and color images acquired of the left leg venous system. Se lected spectral images acquired with additional compression and augmentation maneuvers. The contralat eral common femoral vein and saphenofemoral junction were also imaged. Images stored on PACS. LIMITATIONS: None. FINDINGS: COMMON FEMORAL: Normal phasicity, compression and augmentation. No visualized echogenic ma terial on medina scale. No defects on color images. FEMORAL: Normal compression and augmentation. No visualized echogenic material on medina scale. No defe cts on color images. POPLITEAL: Normal compression, augmentation. No visualized echogenic material on medina scale. No defec ts on color images. CALF VESSELS: Normal compression, augmentation. No visualized echogenic material on medina scale. No de fects on color images. GSV and SSV: Normal compression, augmentation. No visualized echogenic material on medina scale. No def ects on color images. ANY DEEP VENOUS INSUFFICIENCY: Not evaluated. ANY EVIDENCE OF POPLITEAL CYST: No. OTHER: No other significant finding. CONTRALATERAL COMMON FEMORAL VEIN AND SAPHENOFEMORAL JUNCTION: Normal phasicity, compression and augmentation. No visualized echogenic material on medina scale. No de fects on color images. IMPRESSION: NO EVIDENCE DVT OR SVT IN THE LEFT LEG. TECHNICAL DOCUMENTATION: JOB ID: [id number] 2010 [employer]- All Rights Reserved Reading location - IP/workstation name: [email or web address]
== END ==
LOC: SP 12:57
PROVIDERS: ATTEND Internal Medicine
DX: R22.42 Localized swelling, mass and lump, left lower limb (principal)
CPT/HCPCS: 93971